=== PATIENT | male | born 1940 | race Caucasian/White ===

== ENCOUNTER 2022-03-22 11:31 | Inpatient (IN) | payer OTHER ==
[~2022-03-22] VITALS: Ht 167.6 cm; Wt 89.4 kg
[2022-03-22 11:42] VITALS: BP_SYST 122
[2022-03-22] MEDS ORDERED: NACL 0.9% 1,000 ML IV ONE (11:45)
[2022-03-22 12:09] LABS: BASOPHILS % (AUTO) 0.2 % (0.0-2.0); EOSINOPHILS % (AUTO) 0.1 % (0.0-4.0); HEMATOCRIT 35.2 % (36-54); HEMOGLOBIN 11.4 g/dL (14.0-18.0); LYMPHOCYTES # (AUTO) 1.3 K/uL (1.0-5.5); LYMPHOCYTES % (AUTO) 14.9 % (20.5-51.5); MEAN CORPUSCULAR HEMOGLOBIN 25 pg (27-31); MEAN CORPUSCULAR HGB CONC 33 % (32-36); MEAN CORPUSCULAR VOLUME 76 fL (79.0-98.0); MONOCYTES # (AUTO) 0.8 K/uL (0.0-1.0); MONOCYTES % (AUTO) 9.3 % (1.7-9.3); NEUTROPHILS # (AUTO) 6.8 K/uL (1.8-7.7); NEUTROPHILS % (AUTO) 75.5 % (40.0-70.0); PLATELET COUNT (AUTO) 516 K/uL (130-430); RED BLOOD CELL COUNT(AUTO) 4.65 MIL/uL (4.2-6.2); RED CELL DISTRIBUTION WIDTH 15.7 % (9.0-15.0)
[2022-03-22 12:18] LABS: ANION GAP 8 (5-15); CALCIUM 9.2 mg/dL (8.4-11.0); CHLORIDE 95 mmol/L (98-107); CREATININE 0.87 mg/dL (0.55-1.30); GLUCOSE 138 mg/dL (70-99); POTASSIUM 3.5 mmol/L (3.5-5.1); SODIUM SERUM 134 mmol/L (136-145); UREA NITROGEN, BLOOD 10 mg/dL (8-21)
[2022-03-22 12:22] LABS: INR 1.1 (0.80-1.20); PROTHROMBIN TIME 11.5 SECS (9.5-12.5)
[2022-03-22 12:27] LABS: ALANINE AMINOTRANSFERASE 3 U/L (12-78); ALBUMIN 1.4 g/dL (3.4-4.8); ASPARTATE AMINOTRANSFERASE 55 U/L (10-37); TOTAL BILIRUBIN 1.2 mg/dL (0.0-1.0)
[2022-03-22 12:41] LABS: BILIRUBIN,URINE 3+ (NEGATIVE); BLOOD, URINE 1+ (NEGATIVE); CLARITY/URINE CLEAR (CLEAR); COLOR,URINE ORANGE (YELLOW); GLUCOSE,URINE TRACE (NEGATIVE); KETONES,URINE 3+ (NEGATIVE); LEUKOCYTE ESTERASE ,URINE NEGATIVE (NEGATIVE); PH,URINE 5.5 (5.0-8.0); PROTEIN URINE 2+ (NEGATIVE)
[2022-03-22 12:43] LABS: UROBILINOGEN,URINE >=8 (0.2-1.0)
[2022-03-22] MEDS ORDERED: dilTIAZem HCL IVP 5 MG/ML VIAL IVP ONE ×2 (12:45→14:45)
[2022-03-22 14:11] LABS: WBC,URINE 0-3 /HPF (0-3)
[2022-03-22 14:12] LABS: BACTERIA,URINE None Seen /HPF (None Seen); MUCUS,URINE 3+ /LPF (None Seen); NITRITE, URINE POSITIVE (NEGATIVE)
[2022-03-22] MEDS ORDERED: ONDANSETRON HCL 4 MG/2 ML VIAL IVP ONE (17:00)
[2022-03-22 18:22] VITALS: BP_SYST 113
[2022-03-22 18:58] VITALS: BP_SYST 138
[2022-03-22 19:54] VITALS: BP_SYST 130
[2022-03-22 20:00] VITALS: BP_SYST 112
[2022-03-22] MEDS ORDERED: cefTRIAXone 1 GM in D5W 50 ML IV ONE (21:00)
[2022-03-22] MEDS ORDERED: METOPROLOL SUCCINATE 25 MG TAB.SR.24H (TOPROL XL) PO SCH ×2 (21:00)
[2022-03-22] MEDS: ONDANSETRON HCL 4 MG/2 ML VIAL IVP PRN (21:24)
[2022-03-22] MEDS: TEMAZEPAM 7.5 MG CAPSULE PO PRN (22:49)
[2022-03-22] MEDS: ENOXAPARIN SODIUM 40 MG/0.4 ML SYRINGE SUBCUT SCH (22:50)
[2022-03-22] MEDS ORDERED: LEVOFLOXACIN 250 MG/D5W 50 ML IV ONE (23:41)
[2022-03-23] VITALS: BP_SYST 125
[2022-03-23] MEDS: LEVOFLOXACIN 250 MG/D5W 50 ML IV SCH (00:20)
[2022-03-23] MEDS ORDERED: POTASSIUM CHLORIDE 20 MEQ/PKT PACKET PO ONE (01:00)
[2022-03-23] MEDS: METOPROLOL TARTRATE 25 MG TABLET PO SCH ×3 (01:08→21:00)
[2022-03-23] MEDS ORDERED: DOCUSATE SODIUM 100 MG CAPSULE PO PRN (01:15)
[2022-03-23 07:54] LABS: ALANINE AMINOTRANSFERASE 6 U/L (12-78); ALBUMIN 1.2 g/dL (3.4-4.8); ANION GAP 7 (5-15); ASPARTATE AMINOTRANSFERASE 55 U/L (10-37); CALCIUM 9.3 mg/dL (8.4-11.0); CHLORIDE 97 mmol/L (98-107); CREATININE 0.75 mg/dL (0.55-1.30); GLUCOSE 104 mg/dL (70-99); POTASSIUM 3.1 mmol/L (3.5-5.1); SODIUM SERUM 134 mmol/L (136-145); THYROID STIMULATING HORMONE 1.17 uIu/mL (0.36-3.74); TOTAL BILIRUBIN 0.9 mg/dL (0.0-1.0); UREA NITROGEN, BLOOD 10 mg/dL (8-21)
[2022-03-23] MEDS ORDERED: METOPROLOL SUCCINATE 25 MG TAB.SR.24H (TOPROL XL) PO SCH (09:00)
[2022-03-23] MEDS ORDERED: AMIODARONE HCL 200 MG TABLET PO ONE (10:00)
[2022-03-23 11:25] LABS: BASOPHILS # (AUTO) 0.1 K/uL (0.0-0.2); BASOPHILS % (AUTO) 0.8 % (0.0-2.0); EOSINOPHILS % (AUTO) 0.2 % (0.0-4.0); HEMATOCRIT 30.9 % (36-54); HEMOGLOBIN 9.8 g/dL (14.0-18.0); LYMPHOCYTES # (AUTO) 1.5 K/uL (1.0-5.5); LYMPHOCYTES % (AUTO) 18.4 % (20.5-51.5); MEAN CORPUSCULAR HEMOGLOBIN 25 pg (27-31); MEAN CORPUSCULAR HGB CONC 32 % (32-36); MEAN CORPUSCULAR VOLUME 78 fL (79.0-98.0); MONOCYTES # (AUTO) 0.8 K/uL (0.0-1.0); MONOCYTES % (AUTO) 9.9 % (1.7-9.3); NEUTROPHILS # (AUTO) 5.6 K/uL (1.8-7.7); NEUTROPHILS % (AUTO) 70.7 % (40.0-70.0); PLATELET COUNT (AUTO) 396 K/uL (130-430); RED BLOOD CELL COUNT(AUTO) 3.99 MIL/uL (4.2-6.2); RED CELL DISTRIBUTION WIDTH 15.8 % (9.0-15.0); WHITE BLOOD COUNT (AUTO) 7.9 K/uL (4.8-10.8)
[2022-03-23 16:00] VITALS: BP_SYST 113
[2022-03-23] MEDS: METOCLOPRAMIDE HCL 10 MG/2 ML VIAL IVP SCH (18:54)
[2022-03-23 20:00] VITALS: BP_SYST 111
[2022-03-23] MEDS ORDERED: cefTRIAXone 1 GM IVPB PREMIX 50 ML IV SCH (21:00)
[2022-03-23] MEDS: TEMAZEPAM 7.5 MG CAPSULE PO PRN (21:51)
[2022-03-23] MEDS: AMIODARONE HCL 200 MG TABLET PO SCH (21:52)
[2022-03-23] MEDS: ENOXAPARIN SODIUM 40 MG/0.4 ML SYRINGE SUBCUT SCH (21:52)
[2022-03-24] VITALS: BP_SYST 116
[2022-03-24] MEDS: LEVOFLOXACIN 250 MG/D5W 50 ML IV SCH ×2 (01:45→22:18)
[2022-03-24] MEDS: METOCLOPRAMIDE HCL 10 MG/2 ML VIAL IVP SCH ×5 (01:47→23:20)
[2022-03-24 08:06] LABS: FREE PSA 0.05 ng/mL; PROSTATE SPECIFIC AG TOTAL 0.2 ng/mL (0.0-4.0)
[2022-03-24 08:49] VITALS: BP_SYST 124
[2022-03-24] MEDS: AMIODARONE HCL 200 MG TABLET PO SCH ×2 (09:13→21:11)
[2022-03-24] MEDS: METOPROLOL TARTRATE 25 MG TABLET PO SCH ×2 (09:14→21:00)
[2022-03-24 15:00] VITALS: BP_SYST 115
[2022-03-24 20:00] VITALS: BP_SYST 110
[2022-03-24] MEDS: ENOXAPARIN SODIUM 40 MG/0.4 ML SYRINGE SUBCUT SCH (21:10)
[2022-03-24] MEDS: TEMAZEPAM 7.5 MG CAPSULE PO PRN (21:10)
[2022-03-25] VITALS: BP_SYST 112
[2022-03-25] MEDS: METOCLOPRAMIDE HCL 10 MG/2 ML VIAL IVP SCH ×4 (05:38→23:36)
[2022-03-25 08:00] VITALS: BP_SYST 104
[2022-03-25] MEDS: AMIODARONE HCL 200 MG TABLET PO SCH ×2 (09:00→22:24)
[2022-03-25] MEDS: METOPROLOL TARTRATE 25 MG TABLET PO SCH ×2 (09:00→21:00)
[2022-03-25] MEDS ORDERED: MIDAZOLAM HCL 5 MG/5 ML VIAL ONE (11:30)
[2022-03-25 12:00] VITALS: BP_SYST 119
[2022-03-25] MEDS ORDERED: LIDOCAINE 1%, 20 ML MDV 20 ML ONE (12:26)
[2022-03-25 13:00] VITALS: BP_SYST 112
[2022-03-25 13:30] VITALS: BP_SYST 129
[2022-03-25 20:00] VITALS: BP_SYST 105
[2022-03-25] MEDS: ENOXAPARIN SODIUM 40 MG/0.4 ML SYRINGE SUBCUT SCH (22:23)
[2022-03-25] MEDS: TEMAZEPAM 7.5 MG CAPSULE PO PRN (22:24)
[2022-03-25] MEDS: LEVOFLOXACIN 250 MG/D5W 50 ML IV SCH (23:37)
[2022-03-26 02:36] LABS: BILIRUBIN,URINE 2+ (NEGATIVE); CLARITY/URINE CLEAR (CLEAR); COLOR,URINE BROWN (YELLOW); GLUCOSE,URINE TRACE (NEGATIVE); KETONES,URINE 2+ (NEGATIVE); LEUKOCYTE ESTERASE ,URINE NEGATIVE (NEGATIVE); NITRITE, URINE NEGATIVE (NEGATIVE); PROTEIN URINE 1+ (NEGATIVE)
[2022-03-26 02:50] LABS: BLOOD, URINE TRACE (NEGATIVE)
[2022-03-26 03:06] LABS: BACTERIA,URINE None Seen /HPF (None Seen); RBC,URINE 50-80 /HPF (0-3); WBC,URINE 0-3 /HPF (0-3)
[2022-03-26 03:07] LABS: MUCUS,URINE 3+ /LPF (None Seen)
[2022-03-26] MEDS: METOCLOPRAMIDE HCL 10 MG/2 ML VIAL IVP SCH ×3 (06:39→18:55)
[2022-03-26] MEDS: METOPROLOL TARTRATE 25 MG TABLET PO SCH ×2 (09:00→21:00)
[2022-03-26] MEDS: AMIODARONE HCL 200 MG TABLET PO SCH ×2 (09:00→21:00)
[2022-03-26] MEDS ORDERED: hydrALAZINE HCL 20 MG/ML VIAL IVP PRN (09:30)
[2022-03-26 11:32] VITALS: BP_SYST 110
[2022-03-26 17:05] VITALS: BP_SYST 116
[2022-03-26] MEDS: ENOXAPARIN SODIUM 40 MG/0.4 ML SYRINGE SUBCUT SCH (22:57)
[2022-03-26] MEDS: LEVOFLOXACIN 250 MG/D5W 50 ML IV SCH (22:58)
[2022-03-27] MEDS: METOCLOPRAMIDE HCL 10 MG/2 ML VIAL IVP SCH ×4 (06:00→18:27)
[2022-03-27 08:52] LABS: BASOPHILS % (AUTO) 0.2 % (0.0-2.0); EOSINOPHILS % (AUTO) 0.2 % (0.0-4.0); HEMATOCRIT 30.8 % (36-54); HEMOGLOBIN 9.9 g/dL (14.0-18.0); LYMPHOCYTES # (AUTO) 1.1 K/uL (1.0-5.5); LYMPHOCYTES % (AUTO) 15.5 % (20.5-51.5); MEAN CORPUSCULAR HEMOGLOBIN 25 pg (27-31); MEAN CORPUSCULAR HGB CONC 32 % (32-36); MEAN CORPUSCULAR VOLUME 77 fL (79.0-98.0); MONOCYTES # (AUTO) 0.6 K/uL (0.0-1.0); MONOCYTES % (AUTO) 9.1 % (1.7-9.3); NEUTROPHILS # (AUTO) 5.3 K/uL (1.8-7.7); PLATELET COUNT (AUTO) 377 K/uL (130-430); RED BLOOD CELL COUNT(AUTO) 4.02 MIL/uL (4.2-6.2); RED CELL DISTRIBUTION WIDTH 15.6 % (9.0-15.0)
[2022-03-27] MEDS: METOPROLOL TARTRATE 25 MG TABLET PO SCH ×3 (09:00→22:01)
[2022-03-27] MEDS: AMIODARONE HCL 200 MG TABLET PO SCH ×3 (09:00→22:01)
[2022-03-27 09:11] LABS: ALANINE AMINOTRANSFERASE 11 U/L (12-78); ALBUMIN 1.2 g/dL (3.4-4.8); ANION GAP 8 (5-15); ASPARTATE AMINOTRANSFERASE 61 U/L (10-37); CALCIUM 9.1 mg/dL (8.4-11.0); CHLORIDE 96 mmol/L (98-107); CREATININE 0.66 mg/dL (0.55-1.30); GLUCOSE 116 mg/dL (70-99); POTASSIUM 3.2 mmol/L (3.5-5.1); SODIUM SERUM 135 mmol/L (136-145); TOTAL BILIRUBIN 1.1 mg/dL (0.0-1.0); UREA NITROGEN, BLOOD 7 mg/dL (8-21)
[2022-03-27] MEDS ORDERED: NACL 0.9% 1,000 ML IV ONE (09:30)
[2022-03-27] MEDS ORDERED: KCL 20 mEq in 100 mL (PREMIX) 100 ML IV ONE (10:00)
[2022-03-27 11:37] VITALS: BP_SYST 132
[2022-03-27 16:16] VITALS: BP_SYST 126
[2022-03-27 21:01] VITALS: BP_SYST 116
[2022-03-27] MEDS: ENOXAPARIN SODIUM 40 MG/0.4 ML SYRINGE SUBCUT SCH (22:01)
[2022-03-27] MEDS: LEVOFLOXACIN 250 MG/D5W 50 ML IV SCH (22:01)
[2022-03-28 00:39] VITALS: BP_SYST 144
[2022-03-28] MEDS: METOCLOPRAMIDE HCL 10 MG/2 ML VIAL IVP SCH ×4 (06:01→17:19)
[2022-03-28] MEDS ORDERED: DIATR MEGLU/DIATRIZ SOD 30 ML SOLUTION PO ONE (07:18)
[2022-03-28 08:00] VITALS: BP_SYST 130
[2022-03-28] MEDS: PANTOPRAZOLE SODIUM 40 MG/VIAL (PROTONIX) IVP SCH (08:31)
[2022-03-28] MEDS: AMIODARONE HCL 200 MG TABLET PO SCH ×3 (08:31→22:14)
[2022-03-28] MEDS: METOPROLOL TARTRATE 25 MG TABLET PO SCH ×3 (08:32→22:14)
[2022-03-28] MEDS: KCL 20 mEq in 100 mL (PREMIX) 100 ML IV SCH ×2 (10:30→11:22)
[2022-03-28 12:15] VITALS: BP_SYST 122
[2022-03-28 16:09] VITALS: BP_SYST 118
[2022-03-28] MEDS: ENOXAPARIN SODIUM 40 MG/0.4 ML SYRINGE SUBCUT SCH ×2 (21:00→22:14)
[2022-03-28] MEDS: LEVOFLOXACIN 250 MG/D5W 50 ML IV SCH ×2 (22:15→22:25)
[2022-03-28 22:52] VITALS: BP_SYST 121
[2022-03-29] MEDS: METOCLOPRAMIDE HCL 10 MG/2 ML VIAL IVP SCH ×4 (00:46→17:59)
[2022-03-29] MEDS: AMIODARONE HCL 200 MG TABLET PO SCH ×2 (08:33→21:34)
[2022-03-29] MEDS: PANTOPRAZOLE SODIUM 40 MG/VIAL (PROTONIX) IVP SCH (08:33)
[2022-03-29] MEDS: METOPROLOL TARTRATE 25 MG TABLET PO SCH ×2 (08:34→21:35)
[2022-03-29] MEDS ORDERED: POTASSIUM CHLORIDE 20 MEQ TAB.PRT.SR PO ONE (09:30)
[2022-03-29 12:43] VITALS: BP_SYST 129
[2022-03-29 16:00] VITALS: BP_SYST 129
[2022-03-29 20:16] VITALS: BP_SYST 123
[2022-03-29] MEDS: ENOXAPARIN SODIUM 40 MG/0.4 ML SYRINGE SUBCUT SCH (21:31)
[2022-03-30] MEDS: METOCLOPRAMIDE HCL 10 MG/2 ML VIAL IVP SCH ×4 (00:22→17:02)
[2022-03-30 01:16] VITALS: BP_SYST 121
[2022-03-30 08:00] VITALS: BP_SYST 140
[2022-03-30] MEDS: AMIODARONE HCL 200 MG TABLET PO SCH ×2 (08:22→21:30)
[2022-03-30] MEDS: METOPROLOL TARTRATE 25 MG TABLET PO SCH ×2 (08:22→21:30)
[2022-03-30] MEDS: PANTOPRAZOLE SODIUM 40 MG/VIAL (PROTONIX) IVP SCH (08:22)
[2022-03-30] MEDS ORDERED: AMIO200T61 PO (09:02)
[2022-03-30] MEDS ORDERED: DOCU-144 PO (09:02)
[2022-03-30] MEDS ORDERED: TEMA7.5C2 PO (09:02)
[2022-03-30] MEDS ORDERED: METO25TA6 PO (09:02)
[2022-03-30 11:31] VITALS: BP_SYST 125
[2022-03-30 15:50] VITALS: BP_SYST 138
[2022-03-30 16:00] VITALS: BP_SYST 100
[2022-03-30] MEDS: ACETAMINOPHEN 325 MG TABLET PO PRN (17:14)
[2022-03-30 20:15] VITALS: BP_SYST 121
[2022-03-30] MEDS: ENOXAPARIN SODIUM 40 MG/0.4 ML SYRINGE SUBCUT SCH (21:30)
[2022-03-31 00:38] VITALS: BP_SYST 113
[2022-03-31] MEDS: METOCLOPRAMIDE HCL 10 MG/2 ML VIAL IVP SCH ×4 (01:19→17:39)
[2022-03-31 08:00] VITALS: BP_SYST 133
[2022-03-31] MEDS: AMIODARONE HCL 200 MG TABLET PO SCH ×2 (09:00→20:21)
[2022-03-31] MEDS: METOPROLOL TARTRATE 25 MG TABLET PO SCH ×2 (09:00→20:21)
[2022-03-31] MEDS: PANTOPRAZOLE SODIUM 40 MG/VIAL (PROTONIX) IVP SCH (09:31)
[2022-03-31 12:00] VITALS: BP_SYST 137
[2022-03-31 16:00] VITALS: BP_SYST 131
[2022-03-31 20:19] VITALS: BP_SYST 134
[2022-03-31] MEDS: ENOXAPARIN SODIUM 40 MG/0.4 ML SYRINGE SUBCUT SCH (20:22)
[2022-04-01] MEDS: METOCLOPRAMIDE HCL 10 MG/2 ML VIAL IVP SCH ×4 (00:18→18:26)
[2022-04-01 00:35] VITALS: BP_SYST 119
[2022-04-01] MEDS ORDERED: NALOXONE HCL 0.4 MG/ML AMP (NARCAN) IVP PRN (01:30)
[2022-04-01 08:00] VITALS: BP_SYST 138
[2022-04-01] MEDS: AMIODARONE HCL 200 MG TABLET PO SCH ×3 (09:00→21:25)
[2022-04-01] MEDS: PANTOPRAZOLE SODIUM 40 MG/VIAL (PROTONIX) IVP SCH (09:00)
[2022-04-01] MEDS: METOPROLOL TARTRATE 25 MG TABLET PO SCH ×3 (09:00→21:26)
[2022-04-01 11:24] VITALS: BP_SYST 134
[2022-04-01 15:33] VITALS: BP_SYST 131
[2022-04-01 20:00] VITALS: BP_SYST 148
[2022-04-01] MEDS: ENOXAPARIN SODIUM 40 MG/0.4 ML SYRINGE SUBCUT SCH ×2 (21:00→21:26)
[2022-04-02] VITALS: BP_SYST 135
[2022-04-02] MEDS: METOCLOPRAMIDE HCL 10 MG/2 ML VIAL IVP SCH ×5 (01:04→23:48)
[2022-04-02 08:12] VITALS: BP_SYST 106
[2022-04-02] MEDS: PANTOPRAZOLE SODIUM 40 MG/VIAL (PROTONIX) IVP SCH (08:20)
[2022-04-02] MEDS ORDERED: *PPN PER PHARMACY XX PRN (08:45)
[2022-04-02] MEDS ORDERED: DEXTROSE 50% JECT 50 ML DISP.SYRIN IVP PRN (08:45)
[2022-04-02] MEDS: METOPROLOL TARTRATE 25 MG TABLET PO SCH ×2 (08:50→21:00)
[2022-04-02] MEDS: AMIODARONE HCL 200 MG TABLET PO SCH ×2 (08:50→21:00)
[2022-04-02] MEDS ORDERED: CLINDAMYCIN 600 MG in D5W 50 ML IV ONE (10:30)
[2022-04-02] MEDS: D5/0.45 NS 1,000 ML IV SCH ×2 (10:46→23:48)
[2022-04-02 11:36] VITALS: BP_SYST 148
[2022-04-02 17:58] VITALS: BP_SYST 137
[2022-04-02 20:00] VITALS: BP_SYST 130
[2022-04-02] MEDS: ENOXAPARIN SODIUM 40 MG/0.4 ML SYRINGE SUBCUT SCH (21:00)
[2022-04-02] MEDS ORDERED: TPN PERIPHERAL 0.0001 ML, SODIUM CHLORIDE 40 MEQ, POTASSIUM CHLORIDE 20 MEQ, K PHOS 9 M... IV SCH ×9 (21:00)
[2022-04-03 01:07] VITALS: BP_SYST 122
[2022-04-03] MEDS: D5/0.45 NS 1,000 ML IV SCH ×2 (05:20→16:07)
[2022-04-03] MEDS: METOCLOPRAMIDE HCL 10 MG/2 ML VIAL IVP SCH ×3 (05:24→19:04)
[2022-04-03] MEDS: INSULIN REGULAR, HUMAN 100 UNITS/ML, 10 ML VIAL (humuLIN R) SUBCUT PRN (05:33)
[2022-04-03] MEDS ORDERED: CLINDAMYCIN 600 MG in D5W 50 ML IV ONE (07:30)
[2022-04-03] MEDS: PANTOPRAZOLE SODIUM 40 MG/VIAL (PROTONIX) IVP SCH (09:00)
[2022-04-03] MEDS: AMIODARONE HCL 200 MG TABLET PO SCH ×2 (09:00→21:08)
[2022-04-03] MEDS: METOPROLOL TARTRATE 25 MG TABLET PO SCH ×2 (09:00→21:08)
[2022-04-03] MEDS: MEPERIDINE 100 MG INJ. 100 MG/ML VIAL ONE ×3 (09:32→09:40)
[2022-04-03] MEDS: MIDAZOLAM HCL 5 MG/5 ML VIAL ONE ×4 (09:32→09:44)
[2022-04-03 10:59] LABS: BASOPHILS % (AUTO) 0.2 % (0.0-2.0); EOSINOPHILS % (AUTO) 0.6 % (0.0-4.0); HEMATOCRIT 30.4 % (36-54); HEMOGLOBIN 9.8 g/dL (14.0-18.0); LYMPHOCYTES # (AUTO) 1.4 K/uL (1.0-5.5); LYMPHOCYTES % (AUTO) 18.5 % (20.5-51.5); MEAN CORPUSCULAR HEMOGLOBIN 25 pg (27-31); MEAN CORPUSCULAR HGB CONC 32 % (32-36); MEAN CORPUSCULAR VOLUME 76 fL (79.0-98.0); MONOCYTES # (AUTO) 0.6 K/uL (0.0-1.0); MONOCYTES % (AUTO) 7.3 % (1.7-9.3); NEUTROPHILS # (AUTO) 5.7 K/uL (1.8-7.7); NEUTROPHILS % (AUTO) 73.4 % (40.0-70.0); PLATELET COUNT (AUTO) 288 K/uL (130-430); RED BLOOD CELL COUNT(AUTO) 4.01 MIL/uL (4.2-6.2); WHITE BLOOD COUNT (AUTO) 7.7 K/uL (4.8-10.8)
[2022-04-03 11:20] LABS: ANION GAP 3 (5-15); CALCIUM 8.6 mg/dL (8.4-11.0); CHLORIDE 99 mmol/L (98-107); CREATININE 0.58 mg/dL (0.55-1.30); GLUCOSE 127 mg/dL (70-99); SODIUM SERUM 135 mmol/L (136-145); UREA NITROGEN, BLOOD 10 mg/dL (8-21)
[2022-04-03 11:24] LABS: INR 1.1 (0.80-1.20)
[2022-04-03 11:32] LABS: ALANINE AMINOTRANSFERASE 9 U/L (12-78); ALBUMIN 1.1 g/dL (3.4-4.8); ASPARTATE AMINOTRANSFERASE 53 U/L (10-37); PHOSPHORUS 2.2 mg/dL (2.7-4.5); TOTAL BILIRUBIN 0.5 mg/dL (0.0-1.0)
[2022-04-03 11:42] LABS: POTASSIUM 2.8 mmol/L (3.5-5.1)
[2022-04-03 11:54] LABS: TRIGLYCERIDES 103 mg/dL (30-150)
[2022-04-03] MEDS ORDERED: KCL 40 mEq in 100 mL (PREMIX) 100 ML IV ONE (12:00)
[2022-04-03] MEDS: ONDANSETRON HCL 4 MG/2 ML VIAL IVP PRN (13:21)
[2022-04-03] MEDS: HYDROcodone/ACETAMIN 5-325 MG TAB (NORCO/ VICODIN) PO PRN (13:22)
[2022-04-03 15:34] VITALS: BP_SYST 117
[2022-04-03 20:00] VITALS: BP_SYST 119
[2022-04-03] MEDS ORDERED: [UNRECOGNIZED DRUG - OTHER] IV SCH ×9 (21:00)
[2022-04-03] MEDS ORDERED: TPN PERIPHERAL IV SCH ×9 (21:00)
[2022-04-03] MEDS ORDERED: FAT EMULSIONS 250 ML IV SCH (21:00)
[2022-04-03] MEDS ORDERED: POTASSIUM CHLORIDE IV SCH ×9 (21:00)
[2022-04-03] MEDS: ENOXAPARIN SODIUM 40 MG/0.4 ML SYRINGE SUBCUT SCH ×2 (21:00→21:09)
[2022-04-03] MEDS ORDERED: SODIUM CHLORIDE IV SCH ×9 (21:00)
[2022-04-04 00:31] VITALS: BP_SYST 119
[2022-04-04] MEDS: D5/0.45 NS 1,000 ML IV SCH ×3 (05:25→20:17)
[2022-04-04] MEDS: METOCLOPRAMIDE HCL 10 MG/2 ML VIAL IVP SCH ×4 (05:32→23:41)
[2022-04-04] MEDS: INSULIN REGULAR, HUMAN 100 UNITS/ML, 10 ML VIAL (humuLIN R) SUBCUT PRN ×2 (05:35→13:37)
[2022-04-04 08:15] VITALS: BP_SYST 105
[2022-04-04] MEDS: PANTOPRAZOLE SODIUM 40 MG/VIAL (PROTONIX) IVP SCH (08:48)
[2022-04-04] MEDS: AMIODARONE HCL 200 MG TABLET PO SCH ×2 (08:48→20:17)
[2022-04-04] MEDS: METOPROLOL TARTRATE 25 MG TABLET PO SCH ×2 (08:49→20:17)
[2022-04-04 09:35] VITALS: BP_SYST 110
[2022-04-04] MEDS: ACETAMINOPHEN 325 MG TABLET PO PRN (09:47)
[2022-04-04 12:00] LABS: BASOPHILS % (AUTO) 0.3 % (0.0-2.0); EOSINOPHILS # (AUTO) 0.1 K/uL (0.0-0.4); EOSINOPHILS % (AUTO) 1.2 % (0.0-4.0); HEMATOCRIT 27.4 % (36-54); HEMOGLOBIN 8.8 g/dL (14.0-18.0); LYMPHOCYTES % (AUTO) 15.7 % (20.5-51.5); MEAN CORPUSCULAR HEMOGLOBIN 25 pg (27-31); MEAN CORPUSCULAR HGB CONC 32 % (32-36); MEAN CORPUSCULAR VOLUME 77 fL (79.0-98.0); MONOCYTES # (AUTO) 0.6 K/uL (0.0-1.0); MONOCYTES % (AUTO) 9.6 % (1.7-9.3); NEUTROPHILS # (AUTO) 4.8 K/uL (1.8-7.7); NEUTROPHILS % (AUTO) 73.2 % (40.0-70.0); PLATELET COUNT (AUTO) 236 K/uL (130-430); RED BLOOD CELL COUNT(AUTO) 3.56 MIL/uL (4.2-6.2); RED CELL DISTRIBUTION WIDTH 15.8 % (9.0-15.0); WHITE BLOOD COUNT (AUTO) 6.6 K/uL (4.8-10.8)
[2022-04-04 12:24] VITALS: BP_SYST 100
[2022-04-04] MEDS ORDERED: COMMUNICATION ORDER XX ONE (12:30)
[2022-04-04 12:35] LABS: CALCIUM 8.1 mg/dL (8.4-11.0); CREATININE 0.64 mg/dL (0.55-1.30); GLUCOSE 216 mg/dL (70-99); PHOSPHORUS 1.5 mg/dL (2.7-4.5); UREA NITROGEN, BLOOD 12 mg/dL (8-21)
[2022-04-04 13:59] LABS: CHLORIDE 97 mmol/L (98-107); POTASSIUM 3.3 mmol/L (3.5-5.1); SODIUM SERUM 131 mmol/L (136-145)
[2022-04-04 14:02] LABS: ANION GAP < 3 (5-15)
[2022-04-04] MEDS ORDERED: K PHOS 15 MM in NS 250 ML IV ONE (15:00)
[2022-04-04] MEDS ORDERED: MAGNESIUM SULFATE 50 ML IV ONE (15:00)
[2022-04-04 16:19] VITALS: BP_SYST 112
[2022-04-04 20:00] VITALS: BP_SYST 107
[2022-04-04] MEDS: ENOXAPARIN SODIUM 40 MG/0.4 ML SYRINGE SUBCUT SCH (20:16)
[2022-04-05 01:05] VITALS: BP_SYST 105
[2022-04-05] MEDS: METOCLOPRAMIDE HCL 10 MG/2 ML VIAL IVP SCH ×3 (04:53→17:20)
[2022-04-05] MEDS: D5/0.45 NS 1,000 ML IV SCH ×3 (06:06→18:46)
[2022-04-05 08:00] VITALS: BP_SYST 117
[2022-04-05] MEDS: METOPROLOL TARTRATE 25 MG TABLET PO SCH (08:59)
[2022-04-05] MEDS: AMIODARONE HCL 200 MG TABLET PO SCH (09:00)
[2022-04-05] MEDS: PANTOPRAZOLE SODIUM 40 MG/VIAL (PROTONIX) IVP SCH (09:00)
[2022-04-05] MEDS: INSULIN REGULAR, HUMAN 100 UNITS/ML, 10 ML VIAL (humuLIN R) SUBCUT PRN ×2 (11:32→17:26)
[2022-04-05 12:00] VITALS: BP_SYST 117
[2022-04-05 16:00] VITALS: BP_SYST 102
[2022-04-05] MEDS ORDERED: POTASSIUM CHLORIDE 20 MEQ/PKT PACKET GT ONE (18:00)
[2022-04-05 20:00] VITALS: BP_SYST 114
[2022-04-05] MEDS: AMIODARONE HCL 200 MG TABLET GT SCH (20:14)
[2022-04-05] MEDS: ENOXAPARIN SODIUM 40 MG/0.4 ML SYRINGE SUBCUT SCH (20:14)
[2022-04-05] MEDS: HYDROcodone/ACETAMIN 5-325 MG TAB (NORCO/ VICODIN) PO PRN (20:15)
[2022-04-05] MEDS: METOPROLOL TARTRATE 25 MG TABLET GT SCH (20:15)
[2022-04-06 00:39] VITALS: BP_SYST 94
[2022-04-06] MEDS: METOCLOPRAMIDE HCL 10 MG/2 ML VIAL IVP SCH ×4 (01:12→18:59)
[2022-04-06 07:00] VITALS: BP_SYST 101
[2022-04-06] MEDS: METOPROLOL TARTRATE 25 MG TABLET GT SCH ×2 (09:26→21:00)
[2022-04-06] MEDS: PANTOPRAZOLE SODIUM 40 MG/VIAL (PROTONIX) IVP SCH (09:27)
[2022-04-06] MEDS: AMIODARONE HCL 200 MG TABLET GT SCH (09:27)
[2022-04-06 12:00] VITALS: BP_SYST 118
[2022-04-06] MEDS: D5/0.45 NS 1,000 ML IV SCH (13:00)
[2022-04-06] MEDS: HYDROcodone/ACETAMIN 5-325 MG TAB (NORCO/ VICODIN) PO PRN ×2 (13:57→19:03)
[2022-04-06 16:50] VITALS: BP_SYST 105
[2022-04-06 20:00] VITALS: BP_SYST 95
[2022-04-06] MEDS: ENOXAPARIN SODIUM 40 MG/0.4 ML SYRINGE SUBCUT SCH (21:00)
[2022-04-06 21:16] VITALS: BP_SYST 95
[2022-04-07] MEDS ORDERED: AMIODARONE HCL 200 MG TABLET PO SCH (09:00)
== END 2022-04-06 21:34 | DRG 686 ==
LOC: SED 11:31 → STU 16:23 → SMU 03-29 19:40 → STU 04-03 19:54 → SMU 04-04 16:13
PROVIDERS: ADMIT Preventive Medicine Preventive Medicine/Occupational Environmental Medicine; ATTEND Preventive Medicine Preventive Medicine/Occupational Environmental Medicine
PROC: 0TB43ZX Excision of Left Kidney Pelvis, Percutaneous Approach, Diagnostic (ICD-10-PCS; 2022-04-03)
PROC: 0DB98ZX Excision of Duodenum, Via Natural or Artificial Opening Endoscopic, Diagnostic (ICD-10-PCS; principal; 2022-04-03 08:00)
PROC: 0DH68UZ Insertion of Feeding Device into Stomach, Via Natural or Artificial Opening Endoscopic (ICD-10-PCS; 2022-04-03 08:00)
DX: C64.2 Malignant neoplasm of left kidney, except renal pelvis (principal); E43 Unspecified severe protein-calorie malnutrition; N39.0 Urinary tract infection, site not specified; I48.91 Unspecified atrial fibrillation; N28.89 Other specified disorders of kidney and ureter; Z20.822 Contact with and (suspected) exposure to COVID-19; Z96.653 Presence of artificial knee joint, bilateral; K31.84 Gastroparesis; I50.9 Heart failure, unspecified; I11.0 Hypertensive heart disease with heart failure; R53.83 Other fatigue; K44.9 Diaphragmatic hernia without obstruction or gangrene; K66.9 Disorder of peritoneum, unspecified; I73.9 Peripheral vascular disease, unspecified; D50.9 Iron deficiency anemia, unspecified; E66.9 Obesity, unspecified; R79.89 Other specified abnormal findings of blood chemistry; R63.0 Anorexia; R13.10 Dysphagia, unspecified; K29.70 Gastritis, unspecified, without bleeding; Z88.0 Allergy status to penicillin; Z90.79 Acquired absence of other genital organ(s); Z79.01 Long term (current) use of anticoagulants; Z68.31 Body mass index [BMI] 31.0-31.9, adult
CPT/HCPCS: 36415; 43239; 43246; 70450-TC; 71045; 71260-TC; 76376; 76700-TC; 76770; 78306; 80048; 80053; 81000; 82272; 82962; 83735; 83880; 84100; 84153; 84443; 84478; 84484; 85025; 85610-TC; 85730-TC; 87081; 88305; 88313; 92610-GN; 93005; 93306; 96374; 96375; 96376; 97110-GP; 97112-GP; 97116-GP; 97163-GP; 97530-GP; 99291; A9503; C9113; G0378; J0696; J1650; J1815; J1956; J2001; J2175; J2250; J2405; J2765; J3475; J3480; J3490; J7050; J7060; J7131; Q9964; Q9967